=== PATIENT | male | born 1955 | race Caucasian/White ===

== ENCOUNTER 2016-07-07 07:20 | Day surgery (SDC) | payer OTHER ==
[~2016-07-07 07:20] MED LIST: LIDOCAINE W/ SODIUM BICARB 0.5 ML SYR ONE; Lactated Ringers 1,000 ML PRIMARY IV ONE; ceFAZolin Inj 2gm (Premix) 50 ML IV ONE
[2016-07-07] MEDS ORDERED: D5W 500 ML PRIMARY IV ONE (08:46)
[2016-07-07] MEDS ORDERED: fentaNYL Inj 100 MCG/2 ML VIAL ONE (09:11)
[2016-07-07] MEDS ORDERED: MIDAZOLAM 5 MG/1 ML ONE (09:11)
[2016-07-07] MEDS ORDERED: BUPivacaine Inj 0.25% PF - 10ml vial ONE (09:33)
[2016-07-07] MEDS ORDERED: Lidocaine Inj 1% 20 ML ONE (09:33)
[2016-07-07] MEDS ORDERED: NORMAL SALINE 10 ML SYRINGE FLUSH IVP PRN (11:28)
[2016-07-07 11:36] VITALS: RESP 14
--- NOTE | 2016-07-07 12:00 | GEN.OPNOTE ---
Operative Report Surgeon: Dr. Arjun Martell Anesthesia Type: Local, MAC Anesthesia Provider: Nolan Manning CRNA Surgery Date: 07/07/16 Preoperative Diagnosis: Rt foot exostosis with reoccurring ulceration. Postoperative Diagnosis: 5th metatarsal exostosis causing recurrent ulceration. Procedure: Exostectomy base Rt 5th metatarsal. Estimated Blood Loss (mL): 60 Fluids: 900 Findings at Surgery: none Indications for the Procedure: Chronic ulcerations. Description of Procedure: Patient was wheeled into the operating room under mild sedation. Right foot was prepped scrubbed and draped in the usual aseptic manner. Local anesthesia was then injected proximal to the surgery site at the lateral aspect of the right foot with a V block proximal to the surgery site. The exostosis was marked. The foot was angulated and the tourniquet was inflated. Curvilinear incision approximately 2 cm in length was made at the base the plantar lateral base of the fifth metatarsal. The patient has calcified vessels and hemostasis could not be obtained. Incision was deepened using sharp and blunt dissection down to the level of the exostosis which was then removed with a hand bur once this was done the area was flushed. The hand bur was used again to make sure all rough edges were smoothed down this was done until the bone was smoothed and there was no prominence. The wound was then flushed again and 3-0 nylon was used to close the wound in a simple interrupted suture technique. The bone was then checked with fluoroscopy and noted that the exostosis was gone. Steri- Strips and Xeroform gauze was also applied. The ankle tourniquet was deflated. Local anesthesia consisting of Marcaine and lidocaine was then injected about the surgery site and proximal to the surgery site. Dry sterile dressing consisting of 4 x 4 gauze Kerlix and Coban was applied. The patient tolerated the procedure well following a brief period of postoperative monitoring the patient will be discharged home with both oral and written postoperative instructions. The patient is to be nonweightbearing to the surgical foot for at least 2 weeks. Patient also base sent home with pain medicine and prophylactic antibiotics. Patient is to follow-up in Dr. Martell's office.
[2016-07-07 13:40] VITALS: TEMP 97.8
== END 2016-07-07 13:08 | disposition home or self-care (01) ==
LOC: SDSC 07:20
PROVIDERS: ATTEND Podiatrist Foot & Ankle Surgery
DX: M89.8X7 Other specified disorders of bone, ankle and foot (principal); L97.519 Non-pressure chronic ulcer of other part of right foot with unspecified severity
CPT/HCPCS: 28122; 76000; J0690; J2704; J3010; J2001; J2250; J7070; J7120